=== PATIENT | female | born 1960 | race Caucasian/White ===

== ENCOUNTER 2021-07-02 07:53 | Emergency (ER) | payer BC ==
[~2021-07-02] VITALS: Ht 175.3 cm; Wt 113.4 kg
[2021-07-02 08:07] VITALS: BP_SYST 153
[2021-07-02] MEDS ORDERED: DIPH-TET-PERTUS Vaccine 0.5 ML VIAL (ADACEL) I.M. ONE (09:30)
[2021-07-02 09:54] VITALS: BP_SYST 127
== END 2021-07-02 09:52 | disposition left against medical advice (07) ==
LOC: SED 07:53
DX: S91.011A Laceration without foreign body, right ankle, initial encounter (principal); I10 Essential (primary) hypertension; W22.8XXA Striking against or struck by other objects, initial encounter; Y93.89 Activity, other specified; Y92.89 Other specified places as the place of occurrence of the external cause; Y99.8 Other external cause status
CPT/HCPCS: 90715; 99282; 99283